=== PATIENT | female | born 1985 | race Two or more races ===

== ENCOUNTER 2017-08-02 10:14 | Inpatient (IN) | payer OTHER ==
[~2017-08-02] VITALS: Ht 154.9 cm; Wt 62.3 kg
[~2017-08-02 10:14] MED LIST: IBUP-1222 PO; OXYC-302 PO
[2017-08-02 10:22] VITALS: BP 117/72
[2017-08-02] MEDS ORDERED: PREN-3 PO (10:27)
[2017-08-02] MEDS ORDERED: IRON1TAB60 PO (10:28)
[2017-08-02] MEDS ORDERED: OXYTOCIN 30U/ 0.9% NaCL 500ML 500 ML IV ONE (10:34)
[2017-08-02] MEDS: LACTATED RINGERS 1,000 ML IV SCH ×2 (10:50→11:23)
[2017-08-02] MEDS ORDERED: FENTANYL PF 100 MCG/2ML IV PRN (11:00)
[2017-08-02] MEDS ORDERED: PENICILLIN GK 5,000,000 UNITS in SODIUM CHLORIDE 0.9% 100 ML IVPB ONE (11:00)
[2017-08-02] MEDS ORDERED: FENTANYL PF 100 MCG/2ML IVPush PRN (11:00)
[2017-08-02] MEDS ORDERED: ONDANSETRON 2MG/ML, 2ML IVPush PRN (11:00)
[2017-08-02] MEDS ORDERED: NEWBORN KIT ONE (11:03)
[2017-08-02] MEDS ORDERED: FENTANYL PF 100 MCG/2ML ONE (11:03)
[2017-08-02] MEDS ORDERED: LIDOCAINE 1%, 20ML ONE (11:03)
[2017-08-02] MEDS ORDERED: MISOPROSTOL 200 MCG TABLET ONE (11:04)
[2017-08-02] MEDS ORDERED: OXYTOCIN 30U/ 0.9% NaCL 500ML 500 ML ONE (11:04)
[2017-08-02] MEDS ORDERED: FENTANYL/BUPIV./NS/PF 250 ML EPIDCONT SCH (11:33)
[2017-08-02] MEDS ORDERED: LACTATED RINGERS 1,000 ML IV SCH (11:33)
[2017-08-02 11:36] LABS: MEAN CORPUSCULAR HEMOGLOBIN 29.2 pg (27.0-34.8); MEAN CORPUSCULAR HGB CONC 32.8 g/dL (32.4-35.8); MEAN PLATELET VOLUME 10.1 fL (7.4-10.4); PLATELET COUNT 152 x10^3/uL (130-400); RED BLOOD COUNT 4.21 x10^6/uL (3.82-5.3); RED CELL DISTRIBUTION WIDTH 14.7 % (9.6-15.2)
[2017-08-02] MEDS ORDERED: FENTANYL/BUPIV./NS/PF 250 ML EPIDCONT ONE (11:38)
[2017-08-02] MEDS ORDERED: BUPIVACAINE/PF 0.25% ONE (11:38)
[2017-08-02 11:39] LABS: BASOPHILS # (AUTO) 0.06 x10^3/uL (0-0.1); BASOPHILS % (AUTO) 1 % (0-1); EOSINOPHILS # (AUTO) 0.02 x10^3/uL (0-0.4); EOSINOPHILS % (AUTO) 0 % (1-7); LYMPHOCYTES # (AUTO) 1.37 x10^3/uL (1-3.4); LYMPHOCYTES % (AUTO) 13 % (22-44); MD SCAN; MONOCYTES % (AUTO) 6 % (2-9); NEUTROPHILS # (AUTO) 8.17 x10^3/uL (1.8-6.8); NEUTROPHILS % (AUTO) 80 % (42-75)
[2017-08-02] MEDS ORDERED: NALOXONE 0.4 MG/ML, 1ML IVPush PRN (12:00)
[2017-08-02] MEDS ORDERED: EPHEDRINE 50 MG/ML, 1ML IVPush PRN (12:00)
[2017-08-02] MEDS ORDERED: LACTATED RINGERS 1,000 ML IVBOLUS PRN (12:00)
[2017-08-02] MEDS ORDERED: ONDANSETRON 2MG/ML, 2ML ONE (12:17)
[2017-08-02] MEDS: OXYTOCIN 30U/ 0.9% NaCL 500ML 500 ML IV SCH ×2 (13:26→23:26)
[2017-08-02] MEDS ORDERED: RHOGAM FROM BLOOD BANK 1 NOTE EA IM/IV ONE (13:30)
[2017-08-02] MEDS ORDERED: MISOPROSTOL 200 MCG TABLET PR PRN (13:30)
[2017-08-02] MEDS ORDERED: DIPH,PERTUSS(ACELL),TET VAC/PF NC IM-VACC PRN (13:30)
[2017-08-02] MEDS ORDERED: MEASLES,MUMPS&RUBELLA VACC/PF 0.5 ML SQ PRN (13:30)
[2017-08-02] MEDS ORDERED: ONDANSETRON 2MG/ML, 2ML IV PRN (13:30)
[2017-08-02] MEDS ORDERED: ACETAMINOPHEN 325 MG TABLET PO PRN ×2 (13:30)
[2017-08-02] MEDS ORDERED: MAGNESIUM HYDROXIDE 8%, 30ML UDC PO PRN (13:30)
[2017-08-02] MEDS ORDERED: PENICILLIN GK 2,500,000 UNITS in DEXTROSE 5% 100 ML IVPB SCH (15:00)
[2017-08-02] MEDS: OXYcodone/APAP 5/325MG TABLET PO PRN (21:27)
[2017-08-02] MEDS: IBUPROFEN 600 MG TABLET PO PRN (21:27)
[2017-08-02 22:10] VITALS: BP 100/61
[2017-08-02] MEDS: CALCIUM CARBONATE 500 MG TAB.CHEW PO PRN (23:22)
[2017-08-03 02:20] VITALS: BP 95/57
[2017-08-03] MEDS: OXYcodone/APAP 5/325MG TABLET PO PRN ×5 (02:28→19:37)
[2017-08-03 06:10] VITALS: BP 84/43
[2017-08-03 06:10] LABS: BASOPHILS # (AUTO) 0.03 x10^3/uL (0-0.1); BASOPHILS % (AUTO) 0 % (0-1); EOSINOPHILS # (AUTO) 0.08 x10^3/uL (0-0.4); EOSINOPHILS % (AUTO) 1 % (1-7); LYMPHOCYTES # (AUTO) 1.89 x10^3/uL (1-3.4); LYMPHOCYTES % (AUTO) 18 % (22-44); MD SCAN; MEAN CORPUSCULAR HGB CONC 33.3 g/dL (32.4-35.8); MEAN CORPUSCULAR VOLUME 90.1 fL (80-100); MEAN PLATELET VOLUME 12.7 fL (7.4-10.4); MONOCYTES % (AUTO) 8 % (2-9); NEUTROPHILS # (AUTO) 7.73 x10^3/uL (1.8-6.8); NEUTROPHILS % (AUTO) 73 % (42-75); PLATELET COUNT 125 x10^3/uL (130-400); RED BLOOD COUNT 3.88 x10^6/uL (3.82-5.3); RED CELL DISTRIBUTION WIDTH 14.6 % (9.6-15.2)
[2017-08-03] MEDS: IBUPROFEN 600 MG TABLET PO PRN ×2 (06:26→18:12)
[2017-08-03 07:56] VITALS: BP 96/50
[2017-08-03] MEDS: PRENATAL VIT/IRON/FA 1 EACH TABLET PO SCH (08:37)
[2017-08-03] MEDS: DOCUSATE 100 MG CAPSULE PO PRN ×2 (08:38→19:37)
[2017-08-03 11:55] VITALS: BP 100/58
[2017-08-03 19:30] VITALS: BP 116/70
[2017-08-03] MEDS: CALCIUM CARBONATE 500 MG TAB.CHEW PO PRN (22:35)
[2017-08-04] MEDS: IBUPROFEN 600 MG TABLET PO PRN ×2 (00:14→07:33)
[2017-08-04] MEDS: OXYcodone/APAP 5/325MG TABLET PO PRN ×4 (00:14→09:29)
[2017-08-04 07:20] VITALS: BP 108/64
[2017-08-04] MEDS: PRENATAL VIT/IRON/FA 1 EACH TABLET PO SCH (07:33)
[2017-08-04] MEDS: DOCUSATE 100 MG CAPSULE PO PRN (07:33)
[2017-08-04] MEDS ORDERED: IBUP-1222 PO (09:02)
== END 2017-08-04 10:44 | disposition home or self-care (01) | DRG 775 ==
LOC: LDOP 10:14 → LDIP 10:44 → 2NW 20:57
PROVIDERS: ADMIT Obstetrics & Gynecology; ATTEND Obstetrics & Gynecology
PROC: 10E0XZZ Delivery of Products of Conception, External Approach (ICD-10-PCS; principal; 2017-08-02)
PROC: 10907ZC Drainage of Amniotic Fluid, Therapeutic from Products of Conception, Via Natural or Artificial Opening (ICD-10-PCS; 2017-08-02)
PROC: 3E0R3BZ Introduction of Anesthetic Agent into Spinal Canal, Percutaneous Approach (ICD-10-PCS; 2017-08-02)
PROC: 00HU33Z Insertion of Infusion Device into Spinal Canal, Percutaneous Approach (ICD-10-PCS; 2017-08-02)
DX: O69.81X0 Labor and delivery complicated by cord around neck, without compression, not applicable or unspecified (principal); O99.824 Streptococcus B carrier state complicating childbirth; Z37.0 Single live birth; Z3A.40 40 weeks gestation of pregnancy
CPT/HCPCS: 36415; 85025; 86850; 86900; J2405; J2540; J3010; J2590; J7120

== ENCOUNTER 2018-12-18 11:31 | Emergency (ER) | payer OTHER ==
[~2018-12-18] VITALS: Ht 154.9 cm; Wt 55.7 kg
[~2018-12-18 11:31] MED LIST changes: +IRON1TAB60 PO; +PREN-3 PO
[2018-12-18 11:41] VITALS: BP 109/58
[2018-12-18 12:32] LABS: ALANINE AMINOTRANSFERASE 21 U/L (12-78); ALBUMIN 3.4 g/dL (3.4-5.0); ANION GAP 7 mmol/L (5-15); CALCIUM 8.1 mg/dL (8.5-10.1); CHLORIDE 112 mmol/L (98-107); CREATININE 0.77 mg/dL (0.55-1.02)
[2018-12-18 12:37] LABS: ALKALINE PHOSPHATASE 80 U/L (45-117); BILIRUBIN,TOTAL 1.3 mg/dL (0.2-1.0); TOTAL PROTEIN 6.7 g/dL (6.4-8.2)
[2018-12-18 13:34] LABS: MEAN CORPUSCULAR HEMOGLOBIN 30.4 pg (27.0-34.8); MEAN CORPUSCULAR HGB CONC 32.9 g/dL (32.4-35.8); MEAN CORPUSCULAR VOLUME 92.6 fL (80-100); MEAN PLATELET VOLUME 11.5 fL (7.4-10.4); PLATELET COUNT 166 x10^3/uL (130-400); RED BLOOD COUNT 4.24 x10^6/uL (3.82-5.3); RED CELL DISTRIBUTION WIDTH 13.9 % (9.6-15.2)
[2018-12-18 13:36] LABS: BASOPHILS # (AUTO) 0.03 x10^3/uL (0-0.1); BASOPHILS % (AUTO) 0 % (0-1); EOSINOPHILS # (AUTO) 0.09 x10^3/uL (0-0.4); EOSINOPHILS % (AUTO) 1 % (1-7); LYMPHOCYTES # (AUTO) 1.31 x10^3/uL (1-3.4); LYMPHOCYTES % (AUTO) 16 % (22-44); MD MORPH REVIEW ONLY; MONOCYTES # (AUTO) 0.51 x10^3/uL (0.2-0.8); MONOCYTES % (AUTO) 6 % (2-9); NEUTROPHILS % (AUTO) 77 % (42-75)
[2018-12-18 13:47] LABS: <PLATELET ESTIMATE> ADEQUATE; <RBC MORPHOLOGY> NORMAL; GIANT PLATELETS 1+; LARGE PLATELETS 1+
[2018-12-18] MEDS ORDERED: OMNIPAQUE 350 MG/ML, 100ML BOTTLE ONE (14:15)
[2018-12-18 14:56] LABS: MICROSCOPIC NOT IND
[2018-12-18 15:00] LABS: CULTURE INDICATED? NO
== END 2018-12-18 16:00 | disposition home or self-care (01) ==
LOC: ED 15:54
DX: M53.3 Sacrococcygeal disorders, not elsewhere classified (principal)
CPT/HCPCS: 36415; 72193; 80053; 81003; 84703; 85025; 99284; Q9967